=== PATIENT | male | born 2000 | race Caucasian/White ===

== ENCOUNTER 2021-09-07 10:58 | Outpatient (CLI) | payer OTHER, SELFPAY | END 2021-09-07 10:59 | disposition home or self-care (01) | PROVIDERS: PCP Family Medicine; Visit Provider Family Medicine | DX: Z01.10 Encounter for examination of ears and hearing without abnormal findings (principal) | CPT/HCPCS: 92552; 92556; 92567 ==

== ENCOUNTER 2022-09-07 10:44 | Outpatient (CLI) | payer OTHER, SELFPAY | END 2022-09-07 10:45 | disposition home or self-care (01) | LOC: ANHAUDIO 10:45 | PROVIDERS: PCP Family Medicine; Visit Provider Family Medicine | DX: H90.41 Sensorineural hearing loss, unilateral, right ear, with unrestricted hearing on the contralateral side (principal) | CPT/HCPCS: 92557; 92567 ==

== ENCOUNTER 2023-09-13 07:50 | Outpatient (CLI) | payer OTHER, SELFPAY | END 2023-09-13 07:51 | disposition home or self-care (01) | LOC: ANHAUDIO 07:50 | PROVIDERS: PCP Family Medicine; Visit Provider Family Medicine | DX: Z01.10 Encounter for examination of ears and hearing without abnormal findings (principal); H90.3 Sensorineural hearing loss, bilateral | CPT/HCPCS: 92557; 92567 ==

== ENCOUNTER 2024-09-14 11:12 | Outpatient (CLI) | payer OTHER, SELFPAY ==
--- OUTSIDE RECORDS SUMMARY | 2024-09-14 11:20 | XMS_ITS ---
Author Organization Unknown Address [address] [place] [phone] Phone Care Team Providers Care Coagulating Bath Operator Name Role Phone LILO BAIGHNP Attending Unavailable MIGDALIA Alonzo Primary Unavailable Immunization Immunization Date Status Additional Notes Code Code System MMR 01/19/2000 Completed 03 CVX MMR 05/28/2003 Completed 03 CVX MMR 06/25/2004 Completed 03 CVX IPV 1998 Completed 10 CVX IPV 03/17/1999 Completed 10 CVX IPV 01/19/2000 Completed 10 CVX IPV 05/28/2003 Completed 10 CVX IPV 06/25/2004 Completed 10 CVX DTaP 1998 Completed 20 CVX DTaP 03/17/1999 Completed 20 CVX DTaP 05/05/1999 Completed 20 CVX DTaP 01/19/2000 Completed 20 CVX DTaP 05/28/2003 Completed 20 CVX DTaP 06/25/2004 Completed 20 CVX varicella 09/19/2001 Completed 21 CVX varicella 08/02/2013 Completed 21 CVX Hep A, pediatric, unspecifie d formulation 07/21/2005 Completed 31 CVX Hep A, pediatric, unspecifie d formulation 07/23/2005 Completed 31 CVX Hib-Hep B 1998 Completed 51 CVX Hib-Hep B 03/17/1999 Completed 51 CVX Hib-Hep B 01/19/2000 Completed 51 CVX meningococcal MCV4P 08/02/2013 Completed 114 CVX meningococcal MCV4P 06/23/2016 Completed 114 CVX Tdap 06/22/2012 Completed 115 CVX Tdap 05/19/2022 Completed 115 CVX Influenza, split virus, trivalent, preservative 11/09/2023 Completed 141 CVX Influenza, split virus, quadrivalent, PF 12/21/2017 Completed 150 CVX Influenza, split virus, quadrivalent, PF 12/29/2018 Completed 150 CVX Influenza, split virus, quadrivalent, PF 01/07/2021 Completed 150 CVX Influenza, split virus, quadrivalent, preservative 11/03/2022 Completed 158 C VX COVID-19, mRNA, LNP-S, PF, 3 0 mcg/0.3 mL dose 04/14/2020 Completed 208 CVX COVID-19, mRNA, LNP-S, PF, 3 0 mcg/0.3 mL dose 05/05/2020 Completed 208 CVX COVID-19, mRNA, LNP-S, PF, 3 0 mcg/0.3 mL dose 03/16/2021 Completed 208 CVX COVID-19, mRNA, LNP-S, PF, 5 0 mcg/0.5 mL 11/11/2023 Completed 312 CVX Results COMPREHENSIVE METABOLIC PANE L - Collect Date/Time: 02/01/2023 06:50 [facility] ID: [id number] [address] [place], [place], [phone] LOINC: 41602-0 Test Value Unit Reference Range Code Code System Flag FASTING NO BUN 16 mg/dL L=7 H=20 3094-0 LOINC CREATININE 0.60 mg/dL L=0.66 H=1.25 2160-0 LOINC L GLUCOSE 85 mg/dL L=74 H=106 2345-7 LOINC SODIUM 143 mmol/L L=132 H=144 2951-2 LOINC POTASSIUM 4.1 mmol/L L=3.5 H=5.1 2823-3 LOINC CHLORIDE 103 mmol/L L=98 H=107 2075-0 LOINC CO2 29.0 mmol/L L=22.0 H=30.0 2028-9 LOINC ANION GAP 15 L=10 H=20 59726-2 LOINC OSMOLALITY 296 mOs/kG L=280 H=296 22044-8 LOINC BUN/CREAT 26.7 3097-3 LOINC CALCIUM 9.6 mg/dL L=8.3 H=10.5 74768-2 LOINC AST 22 U/L L=15 H=46 1920-8 LOINC ALT 25 U/L L=9 H=72 1742-6 LOINC ALKALINE PHOS 77 U/L L=38 H=126 6768-6 LOINC TOTAL BILI 0.3 mg/dL L=0.2 H=1.3 1975-2 LOINC ALBUMIN 4.6 G/dL L=3.5 H=5.0 1751-7 LOINC TOTAL PROTEIN 7.4 g/L L=6.3 H=8.2 2885-2 LOINC A/G RATIO 1.6 24698-3 LOINC AGE 22 52448-2 LOINC eGFR NON-AFR 176 ml/min eGFR AFR AMER 213 ml/min TSH - Collect Date/Time: 06/2022 06:50 [facility] ID: [id number] [address] [place] [address], [phone] LOINC: 46484-7 Test Value Unit Reference Range Code Code System Flag TSH. 6.670 uIU/L L=0.470 H=4.680 82267-9 LOINC H ZIPRASIDONE - Collect Date/T мария: 02/01/2023 06:50 [facility] ID: [id number] [address] [place] [address], [phone] LOINC: 43439-5 Test Value Unit Reference Range Code Code System Flag Ziprasidone 33.3 89845-2 LOINC HGB A1C -GLYCOHEMOGLOBIN - C ollect Date/Time: 02/01/2023 06:50 [facility] ID: [id number] [address] [place] [address], [phone] LOINC: 4548-4 Test Value Unit Reference Range Code Code System Flag HGBA1C 5.2 % 4548-4 LOINC CBC W/ DIFF - Collect Date/T мария: 02/01/2023 06:50 [facility] ID: [id number] [address] [place] [address], [phone] LOINC: 31812-7 Test Value Unit Reference Range Code Code System Flag WBC 10.0 10^3uL L=4.8 H=10.8 RBC 5.71 10^6uL L=4.60 H=6.20 HEMOGLOBIN 15.8 g/dL L=14.0 H=18.0 718-7 LOINC HEMATOCRIT 48.5 VOL% L=42.0 H=52.0 4544-3 LOINC MCV 84.9 fL L=80.0 H=94.0 MCH 27.7 pg L=27.0 H=32.0 MCHC 32.6 g/dL L=32.0 H=36.0 PLATELETS 246 10^3uL L=100 H=400 52474-3 LOINC RDW 11.9 % L=11.7 H=15.5 %GRAN 56.1 % L=40.0 H=70.0 60071-9 LOINC %LYMPH 35.2 % L=20.0 H=45.0 736-9 LOINC %MONO 6.3 % L=2.0 H=10.0 40115-8 LOINC %EOS 1.5 % L=0.0 H=6.0 713-8 LOINC %BASO 0.5 % L=0.0 H=3.0 706-2 LOINC #NEUT 5.6 10^3uL L=1.9 H=7.6 13308-2 LOINC #LYMPH 3.5 10^3uL L=0.9 H=4.9 14910-0 LOINC #MONO 0.6 10^3uL L=0.1 H=0.9 46033-4 LOINC #EOS 0.2 10^3uL L=0.0 H=0.6 712-0 LOINC #BASO 0.05 10^3uL L=0.00 H=0.10 60774-6 LOINC #IM GRANS 0.0 10^3uL L=0.0 H=7.0 37262-3 LOINC %IM GRANS 0.4 % L=0.0 H=5.0 45818-0 LOINC %NRB 0.0 L=0.0 H=0.2 73856-0 LOINC #NRB 0.000 L=0.000 H=0.012 29882-3 LOINC MANUAL DIFF NOT INDICATED RBC MORPH NOT INDICATED Social History Type Status Start Date End Date Code Code Syst em Sex Male Assessment 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 If you have left the hospital and have any questions, please contact your primary care physician. 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
--- OUTSIDE RECORDS SUMMARY | 2024-09-14 11:20 | XMS_ITS ---
Author Organization Unknown Address [address] [place] [phone] Phone Care Team Providers Care Footwear Sales Representative Name Role Phone LILO BAIGHNP Attending Unavailable [...] COMPREHENSIVE METABOLIC PANE L - Collect Date/Time: 08/16/2023 06:55 [facility] ID: [id number] [address] [place], [place], [phone] LOINC: 96388-5 Test Value Unit Reference Range Code Code System Flag FASTING YES BUN 11 mg/dL L=7 H=20 3094-0 LOINC CREATININE 0.60 mg/dL L=0.66 H=1.25 2160-0 LOINC L GLUCOSE 84 mg/dL L=74 H=106 2345-7 LOINC SODIUM 142 mmol/L L=132 H=144 2951-2 LOINC POTASSIUM 3.9 mmol/L L=3.5 H=5.1 2823-3 LOINC CHLORIDE 105 mmol/L L=98 H=107 2075-0 LOINC CO2 32.0 mmol/L L=22.0 H=30.0 2028-9 LOINC H ANION GAP 9 L=10 H=20 06029-3 LOINC L OSMOLALITY 293 mOs/kG L=280 H=296 35260-9 LOINC BUN/CREAT 18.3 3097-3 LOINC CALCIUM 8.9 mg/dL L=8.3 H=10.5 13536-1 LOINC AST 24 U/L L=15 H=46 1920-8 LOINC ALT 23 U/L L=9 H=72 1742-6 LOINC ALKALINE PHOS 72 U/L L=38 H=126 6768-6 LOINC TOTAL BILI 0.6 mg/dL L=0.2 H=1.3 1975-2 LOINC ALBUMIN 4.3 G/dL L=3.5 H=5.0 1751-7 LOINC TOTAL PROTEIN 6.9 g/L L=6.3 H=8.2 2885-2 LOINC A/G RATIO 1.7 34336-6 LOINC AGE 22 17849-1 LOINC eGFR NON-AFR 176 ml/min eGFR AFR AMER 213 ml/min LIPID PANEL - Collect Date/T мария: 08/16/2023 06:55 [facility] ID: [id number] [place], [place], [phone] LOINC: 97862-2 Test Value Unit Reference Range Code Code System Flag FASTING YES CHOLESTEROL 162 mg/dL L=0 H=200 2093-3 LOINC TRIGLYCERIDE 72 mg/dL L=0 H=150 2571-8 LOINC HDL 41 mg/dL L=40 H=60 2085-9 LOINC LDL 102 mg/dL 9-1 LOINC TSH - Collect Date/Time: 06:55 [facility] ID: [id number] [place], [phone] LOINC: 71516-0 Test Value Unit Reference Range Code Code System Flag TSH. 5.000 uIU/L L=0.470 H=4.680 65455-9 LOINC H HEPATITIS C AB (HCV Ab) - Co llect Date/Time: 08/16/2023 06:55 [facility] ID: [id number] [place], [phone] LOINC: 55496-9 Test Value Unit Reference Range Code Code System Flag Hep C Virus Ab Non Reactive Non Reactive 73113-9 LOINC SEND TO IFC? NO HIV 4th GEN Ab 1&2 p24 Ag in -house - Collect Date/Time: 08/16/2023 06:55 [facility] ID: [id number] [address] [place], [place], [id number] LOINC: 74570-0 Test Value Unit Reference Range Code Code System Flag HIV-1 Ab NEGATIVE NORMAL: NON REACTIVE/NE HIV-2 Ab NEGATIVE HIV-p24 Ag NEGATIVE SEND TO IFC? NO REFLEX? NO 5778-6 LOINC ZIPRASIDONE - Collect Date/T мария: 08/16/2023 06:55 [facility] ID: [id number] [address] [place], [place], [phone] LOINC: 92333-6 Test Value Unit Reference Range Code Code System Flag Ziprasidone 59.5 17082-7 LOINC HGB A1C -GLYCOHEMOGLOBIN - C ollect Date/Time: 08/16/2023 06:55 [facility] ID: [id number] [address] [place], [place], [id number] LOINC: 4548-4 Test Value Unit Reference Range Code Code System Flag HGBA1C 5.0 % 4548-4 LOINC CBC W/ DIFF - Collect Date/T мария: 08/16/2023 06:55 [facility] ID: [id number] [address] [place] [address], [phone] LOINC: 33944-9 Test Value Unit Reference Range Code Code System Flag WBC 7.4 10^3uL L=4.8 H=10.8 RBC 5.19 10^6uL L=4.60 H=6.20 HEMOGLOBIN 14.7 g/dL L=14.0 H=18.0 718-7 LOINC HEMATOCRIT 44.7 VOL% L=42.0 H=52.0 4544-3 LOINC MCV 86.1 fL L=80.0 H=94.0 MCH 28.3 pg L=27.0 H=32.0 MCHC 32.9 g/dL L=32.0 H=36.0 PLATELETS 192 10^3uL L=100 H=400 61200-4 LOINC RDW 12.3 % L=11.7 H=15.5 %GRAN 54.8 % L=40.0 H=70.0 39137-4 LOINC %LYMPH 34.3 % L=20.0 H=45.0 736-9 LOINC %MONO 7.7 % L=2.0 H=10.0 85882-1 LOINC %EOS 2.3 % L=0.0 H=6.0 713-8 LOINC %BASO 0.4 % L=0.0 H=3.0 706-2 LOINC #NEUT 4.0 10^3uL L=1.9 H=7.6 16012-7 LOINC #LYMPH 2.5 10^3uL L=0.9 H=4.9 84456-8 LOINC #MONO 0.6 10^3uL L=0.1 H=0.9 60052-9 LOINC #EOS 0.2 10^3uL L=0.0 H=0.6 712-0 LOINC #BASO 0.03 10^3uL L=0.00 H=0.10 75355-4 LOINC #IM GRANS 0.0 10^3uL L=0.0 H=7.0 86168-3 LOINC %IM GRANS 0.5 % L=0.0 H=5.0 04535-1 LOINC %NRB 0.0 L=0.0 H=0.2 56387-3 LOINC #NRB 0.000 L=0.000 H=0.012 33776-3 LOINC MANUAL DIFF NOT INDICATED RBC MORPH NOT INDICATED Social History Type Status Start Date End Date Code Code Syst em Sex Male Assessment You had the following problems:OTHER RETIREMENT (CURRENT) DRUG THERAPY Hospital Discharge Instructions Should you have any questions prior to discharge, please contact a member of your healthcare team. If you have left the hospital and have any questions, please contact your primary care physician. 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
--- OUTSIDE RECORDS SUMMARY | 2024-09-14 11:20 | XMS_ITS ---
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 If you have left the hospital and have any questions, please contact your primary care physician. Reason For Referral No Data Found Problems Problem Start Date Resolved Date Status Code Code System OTHER CARE HOME (CURRENT) DR MALIK THERAPY active [id number] SNOMED-CT Plan of Treatment No Data Found Encounters Encounter Diagnosis Start Date Code Code Sys tem Displaced fracture of neck o f fifth metacarpal bone, right hand, initial encounter for closed fracture 02/08/2023 SNOMED-CT Personal Care Team Section Performer Name Performer Role Active Date Inactive VINEET Arce PCP - Primary care physician 2021-08-28
--- OUTSIDE RECORDS SUMMARY | 2024-09-14 11:20 | XMS_ITS ---
Author Organization Unknown Address [address] [place] [phone] Phone Care Team Providers Care Coffee Roaster Name Role Phone MARICEL VALDES Attending Unavailable MIGDALIA Alonzo Primary Unavailable Immunization [...] mcg/0.5 mL 11/11/2023 Completed 312 CVX Results HAND 3V RIGHT - Completed: 1 04/06/2022 09:12 LOINC: EXAM DESCRIPTION: HAND 3V RIGHT REASON FOR STUDY: hit dresser last night/ hand pain Duration: last p.m. TECHNIQUE: 3 radiographic view(s) of the right hand . COMPARISON: None available FINDINGS: Acute mildly displaced fracture through the head of the 5th metacarpal with slight angulation of the distal fracture fragment. No additional acute fracture. Otherwise normal wrist and hand alignment. Normal bone mineralization. Joint spaces are normal. Mild soft tissue swelling over the 5th proximal interphalangeal joint. IMPRESSION: ? ? Acute mildly displaced fracture through the head of the 5th metacarpal. THIS IS AN ELECTRONICALLY VERIFIED FINAL REPORT 02/03/2023 9:23 AM - Electronically signed by Robel Farris M.D. AG: BRET Report ID: [id number] Reading Location: [id number] Social History Type Status Start Date End Date Code Code Syst em Sex Male Assessment You had the following problems:OTHER LONG-TERM (CURRENT) DRUG THERAPY Hospital Discharge Instructions Should you have any questions prior to discharge, please contact a member of your healthcare team. If you have left the hospital and have any questions, please contact your primary care physician. Reason For Referral No Data Found Problems Problem Start Date Resolved Date Status Code Code System OTHER LONG-TERM (CURRENT) DR MALIK THERAPY active [id number] SNOMED-CT Plan of Treatment No Data Found Encounters Encounter Diagnosis Start Date Code Code Sys tem Displaced fracture of neck o f fifth metacarpal bone, right hand, initial encounter for closed fracture 02/03/2023 SNOMED-CT Personal Care Team Section Performer Name Performer Role Active Date Inactive VINEET Arce PCP - Primary care physician 2021-08-28 Imaging Narrative Notes
--- OUTSIDE RECORDS SUMMARY | 2024-09-14 11:21 | XMS_ITS ---
Author Organization Unknown Address [address] [place] [phone] Phone Care Team Providers Care Fabrication Manager Name Role Phone LILO BAIGHNP Attending Unavailable [...] mcg/0.5 mL 11/11/2023 Completed 312 CVX Results TSH - Collect Date/Time: 04/2023 07:15 [facility] ID: [id number] [place] [address], [id number] LOINC: 09307-9 Test Value Unit Reference Range Code Code System Flag TSH. 4.460 uIU/L L=0.470 H=4.680 26551-7 LOINC COMPREHENSIVE METABOLIC PANE L - Collect Date/Time: 01/31/2024 07:15 [facility] ID: [id number] [place] [address], [phone] LOINC: 57708-0 Test Value Unit Reference Range Code Code System Flag FASTING YES BUN 12 mg/dL L=7 H=20 3094-0 LOINC CREATININE 0.60 mg/dL L=0.66 H=1.25 2160-0 LOINC L GLUCOSE 90 mg/dL L=74 H=106 2345-7 LOINC SODIUM 141 mmol/L L=132 H=144 2951-2 LOINC POTASSIUM 4.0 mmol/L L=3.5 H=5.1 2823-3 LOINC CHLORIDE 101 mmol/L L=98 H=107 2075-0 LOINC CO2 29.0 mmol/L L=22.0 H=30.0 2028-9 LOINC ANION GAP 15 L=10 H=20 55121-7 LOINC OSMOLALITY 291 mOs/kG L=280 H=296 47915-1 LOINC BUN/CREAT 20.0 3097-3 LOINC CALCIUM 9.5 mg/dL L=8.3 H=10.5 54159-0 LOINC AST 25 U/L L=15 H=46 1920-8 LOINC ALT 38 U/L L=9 H=72 1742-6 LOINC ALKALINE PHOS 67 U/L L=38 H=126 6768-6 LOINC TOTAL BILI 0.6 mg/dL L=0.2 H=1.3 1975-2 LOINC ALBUMIN 4.7 G/dL L=3.5 H=5.0 1751-7 LOINC TOTAL PROTEIN 7.2 g/L L=6.3 H=8.2 2885-2 LOINC A/G RATIO 1.9 99612-4 LOINC AGE 23 29355-7 LOINC eGFR NON-AFR 174 ml/min eGFR AFR AMER 211 ml/min ZIPRASIDONE - Collect Date/T мария: 01/31/2024 07:15 [facility] ID: [id number] [place] [address], [phone] LOINC: 98739-2 Test Value Unit Reference Range Code Code System Flag Ziprasidone 30.0 43962-0 LOINC HGB A1C -GLYCOHEMOGLOBIN - C ollect Date/Time: 01/31/2024 07:15 [facility] ID: [id number] [place], [phone] LOINC: 4548-4 Test Value Unit Reference Range Code Code System Flag HGBA1C 5.2 % 4548-4 LOINC CBC W/ DIFF - Collect Date/T мария: 01/31/2024 07:15 [facility] ID: [id number] [address] [place], [place], [phone] LOINC: 75514-1 Test Value Unit Reference Range Code Code System Flag WBC 10.6 10^3uL L=4.8 H=10.8 RBC 5.56 10^6uL L=4.60 H=6.20 HEMOGLOBIN 15.4 g/dL L=14.0 H=18.0 718-7 LOINC HEMATOCRIT 47.0 VOL% L=42.0 H=52.0 4544-3 LOINC MCV 84.5 fL L=80.0 H=94.0 MCH 27.7 pg L=27.0 H=32.0 MCHC 32.8 g/dL L=32.0 H=36.0 PLATELETS 238 10^3uL L=100 H=400 60415-6 LOINC RDW 12.3 % L=11.7 H=15.5 %GRAN 60.1 % L=40.0 H=70.0 06015-9 LOINC %LYMPH 31.4 % L=20.0 H=45.0 736-9 LOINC %MONO 5.0 % L=2.0 H=10.0 70970-8 LOINC %EOS 2.1 % L=0.0 H=6.0 713-8 LOINC %BASO 0.8 % L=0.0 H=3.0 706-2 LOINC #NEUT 6.4 10^3uL L=1.9 H=7.6 85208-0 LOINC #LYMPH 3.3 10^3uL L=0.9 H=4.9 71186-5 LOINC #MONO 0.5 10^3uL L=0.1 H=0.9 54046-2 LOINC #EOS 0.2 10^3uL L=0.0 H=0.6 712-0 LOINC #BASO 0.08 10^3uL L=0.00 H=0.10 34759-4 LOINC #IM GRANS 0.1 10^3uL L=0.0 H=7.0 90133-7 LOINC %IM GRANS 0.6 % L=0.0 H=5.0 70254-9 LOINC %NRB 0.0 L=0.0 H=0.2 57689-7 LOINC #NRB 0.000 L=0.000 H=0.012 57964-1 LOINC MANUAL DIFF NOT INDICATED RBC MORPH NOT INDICATED Social History Type Status Start Date End Date Code Code Syst em Sex Male Assessment You 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 If you have left the hospital and have any questions, please contact your primary care physician. Reason For Referral No Data Found Problems Problem Start Date Resolved Date Status Code Code System OTHER RESIDENTIAL (CURRENT) DR MALIK THERAPY active [id number] SNOMED-CT Plan of Treatment No Data Found Encounters Encounter Diagnosis Start Date Code Code Sys tem Other roasterman (current) drug therapy 01/31/2024 SNOMED-CT Personal Care Team Section Performer Name Performer Role Active Date Inactive VINEET Arce PCP - Primary care physician 2021-08-28
--- OUTSIDE RECORDS SUMMARY | 2024-09-14 11:21 | XMS_ITS ---
Author Organization Unknown Address [address] [place] [phone] Phone Care Team Providers Care Sustainability Coach Name Role Phone LILO BAIGHNP Attending Unavailable [...] 312 CVX Results TSH - Collect Date/Time: 11/2024 06:50 [facility] ID: [id number] [address] [place] [address], [phone] LOINC: 15662-7 Test Value Unit Reference Range Code Code System Flag TSH. 2.830 uIU/L L=0.470 H=4.680 28033-3 LOINC COMPREHENSIVE METABOLIC PANE L - Collect Date/Time: 08/07/2024 06:50 [facility] ID: [id number] [address] [place] [address], [phone] LOINC: 78308-1 Test Value Unit Reference Range Code Code System Flag FASTING YES BUN 16 mg/dL L=7 H=20 3094-0 LOINC CREATININE 0.70 mg/dL L=0.66 H=1.25 2160-0 LOINC GLUCOSE 88 mg/dL L=74 H=106 2345-7 LOINC SODIUM 141 mmol/L L=132 H=144 2951-2 LOINC POTASSIUM 4.2 mmol/L L=3.5 H=5.1 2823-3 LOINC CHLORIDE 102 mmol/L L=98 H=107 2075-0 LOINC CO2 31.0 mmol/L L=22.0 H=30.0 2028-9 LOINC H ANION GAP 12 L=10 H=20 29972-6 LOINC OSMOLALITY 293 mOs/kG L=280 H=296 58834-4 LOINC BUN/CREAT 22.9 3097-3 LOINC CALCIUM 9.1 mg/dL L=8.3 H=10.5 52567-8 LOINC AST 31 U/L L=15 H=46 1920-8 LOINC ALT 32 U/L L=9 H=72 1742-6 LOINC ALKALINE PHOS 68 U/L L=38 H=126 6768-6 LOINC TOTAL BILI 0.9 mg/dL L=0.2 H=1.3 1975-2 LOINC ALBUMIN 4.6 G/dL L=3.5 H=5.0 1751-7 LOINC TOTAL PROTEIN 7.2 g/L L=6.3 H=8.2 2885-2 LOINC A/G RATIO 1.8 00533-1 LOINC AGE 23 21419-1 LOINC eGFR NON-AFR 146 ml/min eGFR AFR AMER 177 ml/min LIPID PANEL - Collect Date/T мария: 08/07/2024 06:50 [facility] ID: [id number] [address] [place] [address], [phone] LOINC: 79811-9 Test Value Unit Reference Range Code Code System Flag FASTING YES CHOLESTEROL 195 mg/dL L=0 H=200 3-3 LOINC TRIGLYCERIDE 107 mg/dL L=0 H=150 1-8 LOINC HDL 39 mg/dL L=40 H=60 2084-9 LOINC L LDL 124 mg/dL 2088-1 LOINC ZIPRASIDONE - Collect Date/T мария: 08/07/2024 06:50 [facility] ID: [id number] [address] [place] [address], [id number] LOINC: 60269-2 Test Value Unit Reference Range Code Code System Flag Ziprasidone 58.1 85531-5 LOINC HGB A1C -GLYCOHEMOGLOBIN - C ollect Date/Time: 08/07/2024 06:50 [facility] ID: [id number] [address] [place] [address], [id number] LOINC: 4548-4 Test Value Unit Reference Range Code Code System Flag HGBA1C 5.2 % L=4.8 H=6.0 4548-4 LOINC CBC W/ DIFF - Collect Date/T мария: 08/07/2024 06:50 [facility] ID: [id number] [address] [place] [address], [id number] LOINC: 74286-6 Test Value Unit Reference Range Code Code System Flag WBC 8.8 10^3uL L=4.8 H=10.8 RBC 5.48 10^6uL L=4.60 H=6.20 HEMOGLOBIN 15.1 g/dL L=14.0 H=18.0 718-7 LOINC HEMATOCRIT 46.8 VOL% L=42.0 H=52.0 4544-3 LOINC MCV 85.4 fL L=80.0 H=94.0 MCH 27.6 pg L=27.0 H=32.0 MCHC 32.3 g/dL L=32.0 H=36.0 PLATELETS 237 10^3uL L=100 H=400 78058-6 LOINC RDW 12.5 % L=11.7 H=15.5 %GRAN 57.6 % L=40.0 H=70.0 01704-3 LOINC %LYMPH 33.8 % L=20.0 H=45.0 736-9 LOINC %MONO 6.0 % L=2.0 H=10.0 79526-2 LOINC %EOS 1.5 % L=0.0 H=6.0 713-8 LOINC %BASO 0.6 % L=0.0 H=3.0 706-2 LOINC #NEUT 5.1 10^3uL L=1.9 H=7.6 88847-7 LOINC #LYMPH 3.0 10^3uL L=0.9 H=4.9 11510-0 LOINC #MONO 0.5 10^3uL L=0.1 H=0.9 75498-2 LOINC #EOS 0.1 10^3uL L=0.0 H=0.6 712-0 LOINC #BASO 0.05 10^3uL L=0.00 H=0.10 38949-4 LOINC #IM GRANS 0.0 10^3uL L=0.0 H=7.0 89907-8 LOINC %IM GRANS 0.5 % L=0.0 H=5.0 92597-3 LOINC %NRB 0.0 L=0.0 H=0.2 76082-7 LOINC #NRB 0.000 L=0.000 H=0.012 02161-0 LOINC MANUAL DIFF NOT INDICATED RBC MORPH NOT INDICATED Social History Type Status Start Date End Date Code Code Syst em Sex Male Assessment You had the following problems:OTHER ALF (CURRENT) DRUG THERAPY Hospital Discharge Instructions Should you have any questions prior to discharge, please contact a member of your healthcare team. If you have left the hospital and have any questions, please contact your primary care physician. Reason For Referral No Data Found Problems Problem Start Date Resolved Date Status Code Code System OTHER ALF (CURRENT) DR [facility] THERAPY active [id number] SNOMED-CT Plan of Treatment No Data Found Encounters Encounter Diagnosis Start Date Code Code Sys tem Other assisted (current) drug therapy 08/07/2024 SNOMED-CT Personal Care Team Section Performer Name Performer Role Active Date Inactive VINEET Arce PCP - Primary care physician 2021-08-28
--- OUTSIDE RECORDS SUMMARY | 2024-09-14 11:21 | XMS_ITS ---
Author Organization Unknown Address [address] [place] [phone] Phone Care Team Providers Care Separating Machine Operator Name Role Phone MITCHELL FUEN Attending Unavailable MIGDALIA Alonzo Primary Unavailable Immunization [...] CVX Results HAND 3V RIGHT - Completed: 0 03/25/2023 12:45 LOINC: EXAM DESCRIPTION: ? ? HAND 3V RIGHT REASON FOR STUDY: FOLLOW UP FRACTURE 5TH METACARPAL Duration: . FINDINGS: Three views submitted with comparison 04/06/2022. There is a healing, mildly displaced right 5th metacarpal neck fracture. No new fractures are identified. The wrist joint spaces appear normal. IMPRESSION: ? ? Healing, mildly displaced right 5th metacarpal neck fracture. THIS IS AN ELECTRONICALLY VERIFIED FINAL REPORT 03/27/2023 6:16 PM - Electronically signed by Rigoberto Traylor M.D. 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 If you have left the hospital and have any questions, please contact your primary care physician. 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
--- OUTSIDE RECORDS SUMMARY | 2024-09-14 11:21 | XMS_ITS ---
Author Organization Unknown Address [address] [place] [phone] Phone Care Team Providers Care Siebel Administrator Name Role Phone MITCHELL FUEN Attending Unavailable [...] Results HAND 3V RIGHT - Completed: 0 04/22/2023 08:00 LOINC: EXAM DESCRIPTION: ? ? HAND 3V RIGHT REASON FOR STUDY: f/u 5th metacarpal fx no complaints today no surgery Duration: today FINDINGS: Three views submitted with comparison 03/25/2023. There is a healing oblique 5th metacarpal neck fracture. The joint spaces appear normal. There is mild soft tissue swelling. IMPRESSION: ? ? Healing oblique right 5th metacarpal neck fracture. THIS IS AN ELECTRONICALLY VERIFIED FINAL REPORT 04/22/2023 2:28 PM - Electronically signed by Rigoberto Traylor M.D. 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 If you have left the hospital and have any questions, please contact your primary care physician. Reason For Referral No Data Found Problems Problem Start Date Resolved Date Status Code Code System OTHER [facility] (CURRENT) DR [facility]IK THERAP[facility] active 352126020 SNOMED-CT Plan of Treatment No Data Found Encounters Encounter Diagnosis Start Date Code Code Sys tem Nondisplaced fracture of bas e of fifth metacarpal bone, right hand, subsequent encounter for fracture with routine healing 04/22/2023 SNOMED-CT Personal Care Team Section Performer Name Performer Role Active Date Inactive VINEET Arce PCP - Primary care physician 2021-08-28 Imaging Narrative Notes
--- OUTSIDE RECORDS SUMMARY | 2024-09-14 11:21 | XMS_ITS ---
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 If you have left the hospital and have any questions, please contact your primary care physician. Reason For Referral No Data Found Problems Problem Start Date Resolved Date Status Code Code System OTHER [facility] (CURRENT) DR MALIK THERAPY active [id number] SNOMED-CT Plan of Treatment No Data Found Encounters Encounter Diagnosis Start Date Code Code Sys tem 02/08/2023 [id number] SNOMED-CT Personal Care Team Section Performer Name Performer Role Active Date Inactive VINEET Arce PCP - Primary care physician 2021-08-28
== END 2024-09-14 11:13 | disposition home or self-care (01) ==
LOC: ANHAUDIO 11:13
PROVIDERS: PCP Family Medicine; Visit Provider Family Medicine
DX: Z01.118 Encounter for examination of ears and hearing with other abnormal findings (principal); H74.8X1 Other specified disorders of right middle ear and mastoid
CPT/HCPCS: 92557; 92567